=== PATIENT | male | born 1955 | race Caucasian/White ===

== ENCOUNTER → 2019-05-02 | Outpatient (CLI) | payer BC ==
[2019-05-02 12:08] LABS: HCT 43.1 % (39.0-53.0); HGB 14.3 gm/dL (13.0-17.5); MCHC 33.1 g/dL (31.0-37.0); MCV 84.6 fL (80.0-100.0); Mean Platelet Volume 7.9; Platelet Count 266 k/uL (150-450); RDW 13.2 % (11.5-15.5); WBC 9.1 k/uL (3.8-10.6)
[2019-05-02 12:17] LABS: African American GFR (CKD) >90 (>60 ml/min/1.73 sqM); Anion Gap 10 mmol/L; Blood Urea Nitrogen 20 mg/dL (9-20); Carbon Dioxide 25 mmol/L (22-30); Chloride 103 mmol/L (98-107); Glucose 163 mg/dL (74-99); Non-African American GFR(CKD) >90 (>60 ml/min/1.73 sqM); Potassium 4.6 mmol/L (3.5-5.1); Sodium 138 mmol/L (137-145)
== END | disposition home or self-care (01) ==
LOC: LABPRL 11:04
PROVIDERS: ATTEND Internal Medicine Cardiovascular Disease
DX: Z01.812 Encounter for preprocedural laboratory examination (principal); R93.1 Abnormal findings on diagnostic imaging of heart and coronary circulation; E78.2 Mixed hyperlipidemia
CPT/HCPCS: 36415; 80051; 82565; 82947; 84520; 85027

== ENCOUNTER → 2019-05-03 | Day surgery (SDC) | payer BC ==
[2019-05-02 13:44] VITALS: BMI 29.1
[~2019-05-03] MED LIST: ALPRAZolam 0.25 MG TAB PO PRN; ALPRAZolam 0.5 MG TAB PO PRN; ASPIRIN 325 MG TAB PO ONE; ATORVASTATIN 80 MG TAB PO ONE; IOPAMIDOL-370 125ML BTL INJ ONE; LIDOCAINE 1% INJ 10MG/ML (20 ML MDV) ONE; LIDOCAINE 1% INJ 10MG/ML (20 ML MDV) SQ ONE; MIDAZOLAM 2 MG/2 ML VIAL IVP ONE; NITROGLYCERIN SL TABS 0.4 MG TAB SUBLINGUAL PRN; RX INFO: IV CONTRAST WAS GIVEN 1 EACH MISC MISCELLANE PRN; SODIUM CHLORIDE 0.9% 1,000 ML IV SCH; SODIUM CHLORIDE 0.9% 1,000 ML in EMPTY BAG 1 BAG IV ONE; fentaNYL (PF) 50 MCG/ML 2 ML AMP IV ONE; fentaNYL (PF) 50 MCG/ML 2 ML AMP ONE
[2019-05-03 07:08] LABS: Glucose,Whole Blood 142 mg/dL (75-99)
[2019-05-03 07:15] VITALS: RESP 18; TEMP 97.8
--- NOTE | 2019-05-03 08:27 | CC ---
CARDIAC CATHETERIZATION REPORT INDICATION: Abnormal stress echo. PROCEDURE NOTE: After obtaining informed consent, left heart catheterization, coronary angiogram are performed via the right femoral artery using standard Jake catheters. Patient tolerated the procedure well without any obvious immediate complications. A femoral angiogram was performed and Angio-Seal will be deployed for hemostasis. Patient received moderate conscious sedation. Total sedation time was 25 minutes. FINDINGS: 1. HEMODYNAMICS: Left ventricular end-diastolic pressure is 8 to 12 mm. There is no significant gradient across the aortic valve. 2. LEFT VENTRICULOGRAM: Left ventriculogram is not performed #3. 3. ANGIOGRAPHIC DATA: LEFT MAIN CORONARY ARTERY: Left main coronary artery is a normal-sized vessel, shows some mild atherosclerotic plaque in the ostial portion of the left main, divides into left anterior descending coronary artery and circumflex coronary artery. LAD shows a 70% to 80% stenosis in its midportion at the origin of the diagonal branch. The diagonal itself shows a 70% to 80% stenosis. In the very distal LAD as it reaches the apex of the heart, there is a 70% to 80% stenosis noted. The circumflex coronary artery is a nondominant vessel, gives off a large caliber OM branch that has a 70% stenosis. Right coronary artery is a large dominant vessel that shows a 60%-70% stenosis as it bifurcates into PDA and PLV. CONCLUSION: Three-vessel coronary artery disease as described above. The coronaries, especially the LAD and circumflex are heavily calcified. PLAN: I am going to ask a cardiothoracic surgeon to evaluate the patient and give us an opinion regarding surgical revascularization. If they do not believe he is he is an optimal surgical candidate, then patient will undergo catheter-based revascularization. MMODL / IJN: [id number] /
--- NOTE | 2019-05-03 08:33 | LTR ---
DATE OF SERVICE: 05/03/2019 RE: Ashwin Gomez Dear Ivonne: I performed cardiac catheterization on Ashwin Gomez, a detailed catheterization note will be sent for your records. In brief, the cardiac catheterization reveals three-vessel coronary artery disease and I am going to ask a surgeon to evaluate him for possible bypass surgery. If they do not believe he is a surgical candidate, then he will undergo staged multivessel angioplasty. Thank you for giving us the privilege to participate in the care of this pleasant gentleman. Sincerely, MD ABHAY Yanes / JIMENEZ: [id number] /
[2019-05-03 11:59] LABS: Basophils % (A) 0 %; Eosinophils # (A) 0.1 k/uL (0-0.7); Eosinophils % (A) 2 %; HGB 14.1 gm/dL (13.0-17.5); Lymphocytes # (A) 1.8 k/uL (1.0-4.8); Lymphocytes % (A) 26 %; MCH 27.9 pg (25.0-35.0); MCHC 33.5 g/dL (31.0-37.0); MCV 83.3 fL (80.0-100.0); Mean Platelet Volume 7.7; Monocytes # (A) 0.4 k/uL (0-1.0); Monocytes % (A) 6 %; Neutrophils # (A) 4.2 k/uL (1.3-7.7); Neutrophils % (A) 63 %; Platelet Count 239 k/uL (150-450); RBC 5.04 m/uL (4.30-5.90); RDW 13.2 % (11.5-15.5); WBC 6.7 k/uL (3.8-10.6)
[2019-05-03 12:09] LABS: ALT 63 U/L (4-49); AST 70 U/L (17-59); African American GFR (CKD) >90 (>60 ml/min/1.73 sqM); Albumin 4.2 g/dL (3.5-5.0); Alkaline Phosphatase 108 U/L (38-126); Anion Gap 9 mmol/L; Blood Urea Nitrogen 17 mg/dL (9-20); Calcium 9.5 mg/dL (8.4-10.2); Carbon Dioxide 24 mmol/L (22-30); Chloride 103 mmol/L (98-107); Glucose 183 mg/dL (74-99); Magnesium 1.9 mg/dL (1.6-2.3); Non-African American GFR(CKD) >90 (>60 ml/min/1.73 sqM); Potassium 4.5 mmol/L (3.5-5.1); Sodium 136 mmol/L (137-145); Total Bilirubin 1.1 mg/dL (0.2-1.3)
[2019-05-03 12:11] LABS: INR 0.9 (<1.2); Prothrombin Time 9.9 sec (9.0-12.0)
[2019-05-03 12:20] LABS: Partial Thromboplastin Time 21.8 sec (22.0-30.0)
[2019-05-03 13:41] LABS: Color,Urine Yellow
[2019-05-03 13:42] LABS: Appearance,Urine Clear (Clear); Glucose,Urine (UA) Negative (Negative); Protein,Urine Negative (Negative)
[2019-05-03 13:43] LABS: Bilirubin,Urine Negative (Negative); Blood,Urine Negative (Negative); Ketones,Urine Negative (Negative); Leukocyte Esterase,Urine Negative (Negative); Nitrite,Urine Negative (Negative); Urobilinogen,Urine <2.0 mg/dL (<2.0)
[2019-05-03 14:28] VITALS: BP 115/78; PULSE 65
--- NOTE | 2019-05-03 15:01 | XR ---
EXAMINATION TYPE: XR chest 2V DATE OF EXAM: 05/03/2019 COMPARISON: NONE TECHNIQUE: PA and lateral views submitted. HISTORY: Preop FINDINGS: The lungs are clear and there is no pneumothorax, pleural effusion, or focal pneumonia. Azygos fiss ure noted. No overt failure. Biapical pleural thickening. Heart size normal. Hypertrophic changes of the spine. IMPRESSION: 1. No acute process.
--- NOTE | 2019-05-03 15:29 | P.GSCN ---
History of Present Illness Consult date: 05/03/19 Reason for Consult: Multivessel coronary artery disease Requesting physician: Ernesto Martinez History of present illness: This is a 63-year-old gentleman who is followed by Ivonne Kenney nurse practitioner on an outpatient basis. He is a past medical history significant for hypertension, type 2 diabetes mellitus with a recent hemoglobin A1c of 7.0 on 03/12/2019, dyslipidemia, elevated liver enzymes with an AST of 122 and ALT 123 from February 2019, remote history of pneumonia, obesity and a history of dizziness. He has been having some episodes of lightheadedness and dizziness. He denies any complaints of shortness of breath, chest pain, palpitations, syncope or focal neurological deficits. He also states that he has been having some episodes of high blood pressure at home. Subsequently due to the above- mentioned complaints he underwent a carotid duplex study on 04/07/2019 which showed moderate plaque bilaterally without any hemodynamically significant stenosis in either internal carotid artery which was completed at [facility]. For further evaluation he underwent a stress echocardiogram completed at [facility] on 04/28/2019 which demonstrated a positive stress echocardiogram, showing stress-induced ischemia in the basal inferior wall at peak stress suggestive of right coronary artery/circumflex tertiary ischemia. A consult was placed to Dr. Martinez from [facility] and today the patient underwent an elective cardiac catheterization. The cardiac catheterization films demonstrated his left main coronary artery to be normal in size with some mild atherosclerotic plaque in the ostial portion of the left main, a 70-80% stenosis in the midportion of the left anterior setting coronary artery, a 70-80% stenosis to the diagonal coronary artery, a 70-80% stenosis to the distal left anterior descending coronary artery, a 70% stenosis to his obtuse marginal coronary artery, and a 60-70% stenosis to his right coronary artery as it bifurcates into the PDA and PLV coronary arteries. Subsequently, due to the patient's symptoms, stress echocardiogram results and today's cardiac catheterization results a consult was placed to Dr. Susannah Christianson from cardioth oracic surgery to evaluate the patient and give further treatment recommendations in regards to possible myocardial revascularization surgery. Review of Systems A 14 point review of systems was completed and was negative except as mentioned in the HPI. Past Medical History Past Medical History: Diabetes Mellitus, Hyperlipidemia, Hypertension, Pneumonia (Remote history) Additional Past Medical History / Comment(s): GOUT., Recent elevation in his liver enzymes, AST 122, ALT 123 in February 2019. Obesity with a BMI of 29.1 kg/m History of Any Multi-Drug Resistant Organisms: None Reported Past Surgical History: No Surgical Hx Reported Past Anesthesia/Blood Transfusion Reactions: Motion Sickness Additional Past Anesthesia/Blood Transfusion Reaction / Comm: NO ANESTHESIA HX. Past Psychological History: No Psychological Hx Reported Smoking Status: Never smoker Past Alcohol Use History: Rare Past Drug Use History: None Reported - Past Family History Mother Family Medical History: Cancer, Hypertension Additional Family Medical History / Comment(s): SKIN CANCER Brother(s) Family Medical History: Cancer Additional Family Medical History / Comment(s): THYROID CANCER Father Additional Family Medical History / Comment(s): Father at age 82 due to head trauma status post a fall Medications and Allergies Home Medications Medication Instructions Recorded Confirmed Type Aspirin [Adult Low Dose Aspirin EC] 81 mg PO DAILY 05/02/19 05/03/19 History Fish Oil/Dha/Epa [Fish Oil 1,200 1,200 mg PO DAILY 05/03/19 05/03/19 History mg Fish Oil] Meloxicam 15 mg PO DAILY 05/03/19 05/03/19 History Metoprolol Succinate [Toprol XL] 150 mg PO DAILY 05/03/19 05/03/19 History Omega3/Dha/Epa/Fish Oil/Vit D3 1 tab PO DAILY 05/03/19 05/03/19 History [[place]-3 + Vitamin D3 Softgel] amLODIPine [Norvasc] 10 mg PO DAILY 05/03/19 05/03/19 History Allergies Allergy/AdvReac Type Severity Reaction Status Date / Time No Known Allergies Allergy Verified 05/03/19 06:51 Surgical - Exam Vital Signs Temp Pulse Resp BP Pulse Ox 97.8 F 66 18 151/85 98 05/03/19 07:13 05/03/19 07:13 05/03/19 07:13 05/03/19 07:13 05/03/19 07:13 - General well developed, well nourished, no distress, no pain, obese - Eyes PERRL, normal ocular movement - ENT Normocephalic normal pinna, normal nares, normal mucosa, no hearing loss, no congestion - Respiratory Lungs sounds essentially clear throughout. Respirations are symmetrical and nonlabored. - Cardiovascular Regular rhythm and rate. S1 and S2 present, negative for S3, gallop or murmur. No edema present. - Abdomen Abdomen is soft, nontender nondistended. Active bowel sounds present in all 4 abdominal quadrants. No guarding or rigidity. No organomegaly. - Genitourinary Deferred - Rectum Deferred - Integumentary Skin is warm and dry. No clubbing or cyanosis is present. no rash, no growths, no abnormal pigmentation - Neurologic normal coordination, normal sensation - Musculoskeletal normal gait, normal posture - Psychiatric oriented to time, oriented to person, oriented to place, speech is normal, m [place] intact Results - Labs 05/03/19 11:37 05/03/19 11:37 Abnormal Lab Results - Last 24 Hours (Table) 05/03/19 05/03/19 05/03/19 Range/Units 07:04 11:37 11:37 APTT 21.8 L (22.0-30.0) sec Sodium 136 L (137-145) mmol/L Glucose 183 H (74-99) mg/dL POC Glucose (mg/dL) 142 H (75-99) mg/dL AST 70 H (17-59) U/L ALT 63 H (4-49) U/L Diabetes panel 05/03/19 Range/Units 11:37 Sodium 136 L (137-145) mmol/L Potassium 4.5 (3.5-5.1) mmol/L Chloride 103 (98-107) mmol/L Carbon Dioxide 24 (22-30) mmol/L BUN 17 (9-20) mg/dL Creatinine 0.79 (0.66-1.25) mg/dL Glucose 183 H (74-99) mg/dL Calcium 9.5 (8.4-10.2) mg/dL AST 70 H (17-59) U/L ALT 63 H (4-49) U/L Alkaline Phosphatase 108 (38-126) U/L Total Protein 7.0 (6.3-8.2) g/dL Albumin 4.2 (3.5-5.0) g/dL Thyroid panel 05/03/19 Range/Units 11:37 TSH 1.330 (0.465-4.680) mIU/L Calcium panel 05/03/19 Range/Units 11:37 Calcium 9.5 (8.4-10.2) mg/dL Albumin 4.2 (3.5-5.0) g/dL Pituitary panel 05/03/19 Range/Units 11:37 Sodium 136 L (137-145) mmol/L Potassium 4.5 (3.5-5.1) mmol/L Chloride 103 (98-107) mmol/L Carbon Dioxide 24 (22-30) mmol/L BUN 17 (9-20) mg/dL Creatinine 0.79 (0.66-1.25) mg/dL Glucose 183 H (74-99) mg/dL Calcium 9.5 (8.4-10.2) mg/dL TSH 1.330 (0.465-4.680) mIU/L Adrenal panel 05/03/19 Range/Units 11:37 Sodium 136 L (137-145) mmol/L Potassium 4.5 (3.5-5.1) mmol/L Chloride 103 (98-107) mmol/L Carbon Dioxide 24 (22-30) mmol/L BUN 17 (9-20) mg/dL Creatinine 0.79 (0.66-1.25) mg/dL Glucose 183 H (74-99) mg/dL Calcium 9.5 (8.4-10.2) mg/dL Total Bilirubin 1.1 (0.2-1.3) mg/dL AST 70 H (17-59) U/L ALT 63 H (4-49) U/L Alkaline Phosphatase 108 (38-126) U/L Total Protein 7.0 (6.3-8.2) g/dL Albumin 4.2 (3.5-5.0) g/dL - Imaging Comments: Cardiac catheterization films reviewed by Dr. Susannah Christianson. Assessment and Plan Assessment: 1. Multivessel coronary artery disease 2. Hypertension 3. Dyslipidemia 4. Type 2 diabetes mellitus with recent hemoglobin A1c from February 2019 of 7.0 5. History of elevated LFTs 6. Obesity with a BMI of 29.1 kg/m 7. History of dizziness Plan: The patient was seen and examined at his bedside in the extended stay unit. His and a daughter were present at his bedside. His chart and diagnostics were reviewed and discussed with Dr. Susannah Christianson from cardiothoracic surgery in detail. Recommendations are to maximize medical therapy with aspirin, and beta tamara. Preoperative testing has been initiated as well as preoperative teaching. A 5 m walk test will be obtained. He is scheduled to see Dr. Susannah Christianson in the office this 05/06/2019 at 11:45 AM to review his cardiac catheterization films with the patient and to discuss myocardial revascularization surgery. Once his preoperative testing has been completed and collected an STS risk score will be calculated in discussed with the patient. Medical management recommendations per primary care service. Cardiology recommendations per Dr. Martinez. Thank you Dr. Martinez for this consult and we will look forward to working with you in the care of this patient. Time with Patient: Greater than 30
[2019-05-03 18:25] LABS: Hepatitis A Antibody IgM Non-Reactive (Non-Reactive); Hepatitis B Core IgM Non-Reactive (Non-Reactive); Hepatitis B Surface Antigen Non-Reactive (Non-Reactive); Hepatitis C IgG Antibody Non-Reactive (Non-Reactive)
--- NOTE | 2019-05-04 11:07 | P.ARTDOP ---
Arterial Doppler Bilateral radial artery study: Date of study: 03/02/2020 Reason for study: Preop CABG Doppler assessment does show up to 27 mmHg left to right gradient. Digital plethysmography with radial artery compression shows greater than 50 mmHg pressure change bilaterally. Impression: Non-usable bilateral radial arteries based on pressure change criterion.
--- NOTE | 2019-05-04 11:13 | P.VSCSTY ---
Greater Saphenous Vein Mapping This is bilateral lower extremity greater saphenous vein mapping. Date of service: 05/03/2019 Vein quality and ultrasound appearance: We see no endoluminal thrombus or wall changes. Vein size groin right : 4.8 x 4.3 groin left: 7.9 x 10.1 High thigh right: 2.6 x 2.3 high thigh left: 5.4 x 3.7 Mid thigh right: 2.3 x 2.1 mid thigh left: 3.9 x 2.6 Above-knee right: 2.4 x 1.7 above- knee left: 2.3 x 1.2 Below knee right: 2.6 x 1.8 below-knee left: 2.3 x 1.8 Mid calf right: 1.1 x 1.8 mid calf left: 2.2 x 1.9 Ankle right: 2.3 x 2.1 ankle left: 2.0 x 1.3 Impression: Some usable thigh vein bilaterally. The vein from above the knee to the ankle on both sides looks a bit small for use as conduit..
== END ==
LOC: CATHCVL 06:29
PROVIDERS: ATTEND Internal Medicine Cardiovascular Disease
DX: I25.10 Atherosclerotic heart disease of native coronary artery without angina pectoris (principal); I25.84 Coronary atherosclerosis due to calcified coronary lesion; I10 Essential (primary) hypertension; R94.39 Abnormal result of other cardiovascular function study; E78.5 Hyperlipidemia, unspecified; E11.9 Type 2 diabetes mellitus without complications; R74.8 Abnormal levels of other serum enzymes; Z82.3 Family history of stroke; Z82.49 Family history of ischemic heart disease and other diseases of the circulatory system; E66.9 Obesity, unspecified; Z68.29 Body mass index [BMI] 29.0-29.9, adult; Z79.84 Long term (current) use of oral hypoglycemic drugs; Z79.1 Long term (current) use of non-steroidal anti-inflammatories (NSAID); Z79.899 Other long term (current) drug therapy
CPT/HCPCS: 94150; 93458; 80053; 80074; 84443; 83735; 85025; 85610; 85730; 81003; 87070; 71046; 93930; 93970; 93923; C1769 ×2; C1760; C1894; J2250; J2001; J3010; Q9967

== ENCOUNTER → 2019-06-06 | Outpatient (CLI) | payer BC ==
[2019-06-06 14:42] LABS: Basophils # (A) 0.1 k/uL (0-0.2); Basophils % (A) 0 %; Eosinophils # (A) 0.4 k/uL (0-0.7); Eosinophils % (A) 3 %; HCT 30.6 % (39.0-53.0); HGB 9.7 gm/dL (13.0-17.5); Hypochromasia Slight; Lymphocytes # (A) 1.5 k/uL (1.0-4.8); Lymphocytes % (A) 11 %; MCH 27.2 pg (25.0-35.0); MCHC 31.8 g/dL (31.0-37.0); MCV 85.4 fL (80.0-100.0); Mean Platelet Volume 8.4; Monocytes # (A) 0.9 k/uL (0-1.0); Monocytes % (A) 7 %; Neutrophils % (A) 78 %; Platelet Count 673 k/uL (150-450); RBC 3.58 m/uL (4.30-5.90); RDW 14.1 % (11.5-15.5)
== END | disposition home or self-care (01) ==
LOC: LABWHC1 13:39
PROVIDERS: ATTEND Surgery
DX: D64.9 Anemia, unspecified (principal); G72.49 Other inflammatory and immune myopathies, not elsewhere classified
CPT/HCPCS: 36415; 85025; 86140

== ENCOUNTER → 2021-09-11 | Outpatient (CLI) | payer OTHER ==
[2021-09-11 14:53] LABS: HCT 41.4 % (39.6-50.0); HGB 13.1 g/dL (13.0-17.0); MCH 27.6 pg (27.0-32.0); MCHC 31.6 g/dL (32.0-37.0); MCV 87.2 fL (80.0-97.0); Mean Platelet Volume 11.2 fL (9.5-12.2); NRBC Per 100 WBC 0 /100 WBCS (0.0-0.0); Platelet Count 218 X 10*3/uL (140-440); RBC 4.75 X 10*6/uL (4.40-5.60); RDW 13.6 % (11.5-14.5); WBC 7.19 X 10*3/uL (4.50-10.00)
[2021-09-11 15:42] LABS: African American GFR (CKD) 70.6 (60.0-200.0); Anion Gap 13.1 mmol/L (10.00-18.00); BUN/Creat Ratio 16.4 Ratio (12.00-20.00); Blood Urea Nitrogen 20.5 mg/dL (9.0-27.0); Calcium 9.7 mg/dL (8.7-10.3); Carbon Dioxide 22.8 mmol/L (20.0-27.5); Non-African American GFR(CKD) 60.9 (60.0-200.0); Potassium 5.1 mmol/L (3.5-5.5)
== END | disposition home or self-care (01) ==
LOC: LABWHC1 10:12
PROVIDERS: ATTEND Internal Medicine Cardiovascular Disease
DX: R94.2 Abnormal results of pulmonary function studies (principal)
CPT/HCPCS: 36415; 80048; 85027

== ENCOUNTER 2021-09-12 07:19 | Observation (INO) | payer OTHER ==
[~2021-09-12 07:19] MED LIST changes: -ASPIRIN 325 MG TAB PO ONE; +ASPIRIN 325 MG TAB PO STA; -ATORVASTATIN 80 MG TAB PO ONE; +ATORVASTATIN 80 MG TAB PO STA; +HEPARIN SODIUM,PORCINE 10,000 UNIT in SODIUM CHLORIDE 0.9% 1,000 ML IRRIGATION PRN; +HEPARIN SODIUM,PORCINE 2,500 UNIT in SODIUM CHLORIDE 0.9% 250 ML IRRIGATION PRN; -IOPAMIDOL-370 125ML BTL INJ ONE; -LIDOCAINE 1% INJ 10MG/ML (20 ML MDV) ONE; -LIDOCAINE 1% INJ 10MG/ML (20 ML MDV) SQ ONE; -MIDAZOLAM 2 MG/2 ML VIAL IVP ONE; -RX INFO: IV CONTRAST WAS GIVEN 1 EACH MISC MISCELLANE PRN; -SODIUM CHLORIDE 0.9% 1,000 ML IV SCH; -SODIUM CHLORIDE 0.9% 1,000 ML in EMPTY BAG 1 BAG IV ONE; +SODIUM CHLORIDE 0.9% 1,000 ML in EMPTY BAG 1 BAG IV SCH; -fentaNYL (PF) 50 MCG/ML 2 ML AMP IV ONE; -fentaNYL (PF) 50 MCG/ML 2 ML AMP ONE
[2021-09-12 07:47] LABS: Glucose,Whole Blood 129 mg/dL (70-110)
[2021-09-12] MEDS ORDERED: SODIUM CHLORIDE 0.9% 1,000 ML IV ONE ×2 (07:53→12:59)
[2021-09-12] MEDS ORDERED: fentaNYL (PF) 50 MCG/ML 2 ML AMP ONE (08:59)
[2021-09-12] MEDS ORDERED: MIDAZOLAM 2 MG/2 ML VIAL IV ONE (09:28)
[2021-09-12] MEDS ORDERED: fentaNYL (PF) 50 MCG/ML 2 ML AMP IV ONE (09:28)
[2021-09-12] MEDS ORDERED: LIDOCAINE 1% INJ 10MG/ML (30 ML VIAL-PF) SQ ONE (09:29)
[2021-09-12] MEDS ORDERED: IOPAMIDOL-370 125ML BTL INJ ONE ×2 (09:46)
[2021-09-12] MEDS ORDERED: IOPAMIDOL-370 100ML BTL INJ ONE (10:20)
[2021-09-12] MEDS ORDERED: RX INFO: IV CONTRAST WAS GIVEN 1 EACH MISC MISCELLANE PRN (11:20)
[2021-09-12] MEDS ORDERED: ALPRAZolam 0.5 MG TAB PO PRN (11:21)
[2021-09-12] MEDS ORDERED: NITROGLYCERIN SL TABS 0.4 MG TAB SUBLINGUAL PRN (11:21)
[2021-09-12] MEDS ORDERED: ALPRAZolam 0.25 MG TAB PO PRN (11:21)
[2021-09-12] MEDS: SODIUM CHLORIDE 0.9% 1,000 ML IV SCH (11:37)
[2021-09-12 16:11] LABS: Glucose,Whole Blood 86 mg/dL (70-110)
[2021-09-12 16:26] LABS: Basophils % (A) 1 %; Eosinophils # (A) 0.2 k/uL (0-0.7); Eosinophils % (A) 3 %; HCT 38.7 % (39.0-53.0); HGB 12.7 gm/dL (13.0-17.5); Lymphocytes # (A) 1.5 k/uL (1.0-4.8); Lymphocytes % (A) 21 %; MCH 28.9 pg (25.0-35.0); MCHC 32.8 g/dL (31.0-37.0); MCV 88.1 fL (80.0-100.0); Mean Platelet Volume 7.8; Monocytes # (A) 0.5 k/uL (0-1.0); Monocytes % (A) 7 %; Neutrophils # (A) 4.8 k/uL (1.3-7.7); Neutrophils % (A) 68 %; Platelet Count 192 k/uL (150-450); RBC 4.39 m/uL (4.30-5.90); RDW 13.9 % (11.5-15.5); WBC 7.1 k/uL (3.8-10.6)
[2021-09-12 16:38] LABS: Potassium 4.6 mmol/L (3.5-5.1)
[2021-09-12 20:27] LABS: Glucose,Whole Blood 110 mg/dL (70-110)
[2021-09-12] MEDS: METOPROLOL TARTRATE 50 MG TAB PO SCH (21:21)
[2021-09-12 22:59] LABS: Chol/HDL Ratio 3.94 Ratio; LDL Cholesterol,Calculated 34.4 mg/dL (0.0-131.0)
[2021-09-13] MEDS ORDERED: ASPIRIN 325 MG TAB PO ONE (05:00)
[2021-09-13] MEDS ORDERED: ATORVASTATIN 80 MG TAB PO ONE (05:00)
[2021-09-13] MEDS: METOPROLOL TARTRATE 50 MG TAB PO SCH ×2 (06:06→20:57)
[2021-09-13] MEDS: LOSARTAN 25 MG TAB PO SCH (06:06)
[2021-09-13] MEDS: ISOSORBIDE MONONITRATE ER 30 MG TAB.ER.24H PO SCH (06:06)
[2021-09-13 06:08] LABS: Glucose,Whole Blood 123 mg/dL (70-110)
[2021-09-13] MEDS ORDERED: HEPARIN SODIUM,PORCINE 10,000 UNIT in SODIUM CHLORIDE 0.9% 1,000 ML IRRIGATION PRN (07:00)
[2021-09-13] MEDS ORDERED: HEPARIN SODIUM,PORCINE 2,500 UNIT in SODIUM CHLORIDE 0.9% 250 ML IRRIGATION PRN (07:00)
[2021-09-13] MEDS: SODIUM CHLORIDE 0.9% 1,000 ML IV SCH ×4 (07:43→16:32)
[2021-09-13] MEDS: SODIUM CHLORIDE 0.9% 1,000 ML in EMPTY BAG 1 BAG IV SCH ×3 (07:43→20:57)
[2021-09-13] MEDS: ATORVASTATIN 80 MG TAB PO SCH (07:43)
[2021-09-13 08:33] LABS: Basophils # (A) 0.1 k/uL (0-0.2); Basophils % (A) 1 %; Eosinophils # (A) 0.2 k/uL (0-0.7); Eosinophils % (A) 3 %; HCT 37.8 % (39.0-53.0); HGB 12.3 gm/dL (13.0-17.5); Lymphocytes # (A) 1.3 k/uL (1.0-4.8); Lymphocytes % (A) 19 %; MCH 28.3 pg (25.0-35.0); MCHC 32.5 g/dL (31.0-37.0); Mean Platelet Volume 8.4; Monocytes # (A) 0.5 k/uL (0-1.0); Monocytes % (A) 7 %; Neutrophils # (A) 4.6 k/uL (1.3-7.7); Neutrophils % (A) 69 %; Platelet Count 183 k/uL (150-450); RBC 4.34 m/uL (4.30-5.90); RDW 13.8 % (11.5-15.5); WBC 6.6 k/uL (3.8-10.6)
[2021-09-13 08:39] LABS: Calcium 9.2 mg/dL (8.4-10.2); Potassium 4.4 mmol/L (3.5-5.1)
[2021-09-13] MEDS ORDERED: VERAPAMIL 2.5 MG/ML 2 ML AMP ONE (10:40)
[2021-09-13] MEDS ORDERED: HEPARIN SODIUM 1,000 UN/ML (10ML VL) ONE (10:41)
[2021-09-13] MEDS ORDERED: fentaNYL (PF) 50 MCG/ML 2 ML AMP ONE (10:41)
[2021-09-13] MEDS ORDERED: IV FLUID CONTINUATION 350 ML IV ONE (10:53)
[2021-09-13] MEDS ORDERED: fentaNYL (PF) 50 MCG/ML 2 ML AMP IV ONE (11:11)
[2021-09-13] MEDS ORDERED: LIDOCAINE 1% INJ 10MG/ML (30 ML VIAL-PF) SQ ONE (11:12)
[2021-09-13] MEDS ORDERED: VERAPAMIL SYRINGE (5 MG/10 ML) INTRAARTER ONE (11:13)
[2021-09-13] MEDS ORDERED: MIDAZOLAM 2 MG/2 ML VIAL IV ONE (11:14)
[2021-09-13] MEDS ORDERED: CLOPIDOGREL 75 MG TAB ONE ×2 (11:16→11:17)
[2021-09-13] MEDS ORDERED: CLOPIDOGREL 75 MG TAB PO ONE (11:22)
[2021-09-13] MEDS ORDERED: HEPARIN SODIUM 1,000 UN/ML (10ML VL) IV ONE (11:24)
[2021-09-13] MEDS ORDERED: IOPAMIDOL-370 125ML BTL INJ ONE (11:56)
[2021-09-13] MEDS ORDERED: ATROPINE SULFATE 0.1 MG/ML 10ML SYRINGE IV PRN (12:24)
[2021-09-13] MEDS ORDERED: NITROGLYCERIN SL TABS 0.4 MG TAB SUBLINGUAL PRN (12:24)
[2021-09-13] MEDS ORDERED: MAG HYDROX/AL HYDROX/SIMETH 30 ML CUP PO PRN (12:24)
[2021-09-13] MEDS ORDERED: ZOLPIDEM 5 MG TAB PO PRN (12:24)
[2021-09-13] MEDS ORDERED: RX INFO: IV CONTRAST WAS GIVEN 1 EACH MISC MISCELLANE PRN (12:24)
[2021-09-13] MEDS ORDERED: IOPAMIDOL-370 100ML BTL INJ ONE (12:25)
[2021-09-13] MEDS ORDERED: SODIUM CHLORIDE 0.9% 1,000 ML in EMPTY BAG 1 BAG IV SCH (12:30)
[2021-09-13 12:38] LABS: Glucose,Whole Blood 108 mg/dL (70-110)
--- NOTE | 2021-09-13 12:42 | P.CARDCATH ---
Date of Procedure: 09/13/21 Description of Procedure: PERCUTANEOUS TRANSLUMINAL CORONARY ANGIOPLASTY CLINICAL INFORMATION: The patient is a 65-year-old male with a known history of CAD, status post CABG who has been complaining of symptoms of chest discomfort and had an abnormal MPI. Underwent cardiac catheterization yesterday by Dr. Martinez and was found to have an atretic KINGA to the LAD with right subclavian stenosis. In view of his symptoms and his anatomy and the significant disease in the LAD recommendations were made regarding angioplasty and stenting of the LAD. The procedure as well as the risks and the complications were discussed with the patient who was in full understanding and agreement. PROCEDURE: The patient was brought to the [facility] in the fasting and semi- sedated state after receiving fentanyl and Benadryl, using Xylocaine anesthesia in the Seldinger technique a 6-Nigerien sheath was introduced in the left radial artery. A 6 Nigerien EBU 3.75 guiding catheter was introduced into the system. After cannulating the [ left main ], a [0.014 BMW ] waadvaed across the lesion and positioned distally. attempt to advance a 3.0 x 12 mm NC balloon, a 2.0 x 12 mm Treck balloon were unsuccessful, after removing the balloon a guideliner catheter was introduced and a 1.0 x 10 mm Sapphire balloon was advanced and multiple inflation at 10 shanae were done following that the balloon was removed and the 2. 0 by 12 mm Treck balloon was advanced and inflations at 8 shanae were done. Following that a [ 2.5 x 12 NC Treck ]balloon w advanced and inflated at[ 12 ] atmosphe. Following that a [ 2.75 X18 ] guillermina point stent was deployed and postdilated at 16 atmosphere . distal to the first stent at 2.75 x 12 mm sk y point stent was deployed, It was dilated at [ 16 shanae ]. subsequently a 3.0 x 12 mm guillermina point stent was deployed proximally and dilated at 16 shanae. After the last inflation, after appropriate wait, the balloon and the guidewire were withdrawn back into the guiding catheter. Images were obtained and repeated. Those images reveal stable successful stenting. At that point, the guiding catheter, the balloon, and guidewire were removed. a 6-Nigerien SAUD catheter was introduced and images of the MARTINEZ were obtained. The sheath was [ removed ]. Hemostis was obtained with [ deployment of a TR band ]. There re no immediate complications. The patient was returned to the room in stable condition. Of note, the patient received [ 7000] units ofeparin as well as Plavix. His ACT was followed. There was no immediate complications. he had no significant EKG changes or chest discomfort RESULTS: Successful stenting of the [ mid LAD ] with reduction of stenosis from [ 95]% to [ 0 ]%. Patent MARTINEZ to the left circumflex with no obstructive disease RECOMNDATIONS: [ the results were discussed with the patient. I Have recommended dual antiplatelet treatment with aspirin and Plavix for 6-12 months. ]The findings and recommendations were discussed with the patient and the family, they are in full understanding and agreement. Duration of sedation:[ 63 minutes]
[2021-09-13 14:31] VITALS: BMI 29.0
[2021-09-13] MEDS: ASPIRIN 81 MG PO SCH (14:43)
[2021-09-13 16:53] LABS: Glucose,Whole Blood 123 mg/dL (70-110)
[2021-09-13 19:34] LABS: Glucose,Whole Blood 131 mg/dL (70-110)
[2021-09-14] MEDS: SODIUM CHLORIDE 0.9% 1,000 ML IV SCH (03:39)
[2021-09-14 06:14] LABS: Glucose,Whole Blood 123 mg/dL (70-110)
[2021-09-14] MEDS: SODIUM CHLORIDE 0.9% 1,000 ML in EMPTY BAG 1 BAG IV SCH (06:14)
--- NOTE | 2021-09-14 08:23 | P.PN ---
Subjective Progress Note Date: 09/14/21 PROGRESS NOTE The patient is a 65-year-old male, status post CABG who has been complaining of chest discomfort and had an abnormal MPI. He underwent cardiac catheterization was found to have critical stenosis in the LAD, with atretic KINGA to the LAD and right subclavian stenosis, patent MARTINEZ to the OM was occluded SVG to the RCA. He underwent stenting of the LAD yesterday. He is feeling better this morning, he denies any chest discomfort, dizziness or palpitations. He denies any nausea or vomiting. He is in sinus mechanism. Ambulating without difficulties. Medications: Aspirin, Lipitor 80 mg daily, Plavix 75 mg daily, Cozaar 25 mg daily, metoprolol 50 mg twice a day. Imdur 30 mg daily. PHYSICAL EXAMINATION: Blood pressure 145/80 heart rate 70 LUNGS: [Clear to auscultation] HEART: [Regular rate and rhythm, S1, S2. No S3. No systolic murmur] ABDOMEN: [Soft, nontender, no organomegaly] EXTREMETIES: [No edema, left radial pulse intact] LAB: Pending IMPRESSION: 1. Status post stenting of the LAD 2. Known history of severe CAD post CABG 3. Hypertension 4. Hyperlipidemia PLAN: 1. Continue medical therapy 2. Increase physical activity 3. DC home today 4. And follow-up with Dr. Martinez Objective - Vital Signs Vital signs: Vital Signs Temp 98 F 09/13/21 23:17 Pulse 72 09/14/21 03:31 Resp 18 09/14/21 03:31 BP 145/82 09/14/21 03:31 Pulse Ox 97 09/14/21 03:31 FiO2 Intake & Output 09/13/21 09/14/21 09/14/21 18:59 06:59 18:59 Intake Total 268 Balance 268 Weight 91.9 kg Intake: IV 150 Oral 118 Other: Voiding Method Toilet Toilet # Voids 1 2 - Labs CBC & Chem 7: 09/13/21 07:30 09/13/21 07:30 Labs: Abnormal Lab Results - Last 24 Hours (Table) 09/13/21 09/13/21 09/13/21 Range/Units 07:30 07:30 16:52 Hgb 12.3 L (13.0-17.5) gm/dL Hct 37.8 L (39.0-53.0) % Glucose 110 H (74-99) mg/dL POC Glucose (mg/dL) 123 H (70-110) mg/dL 09/13/21 09/14/21 Range/Units 19:32 06:12 Hgb (13.0-17.5) gm/dL Hct (39.0-53.0) % Glucose (74-99) mg/dL POC Glucose (mg/dL) 131 H 123 H (70-110) mg/dL
[2021-09-14 08:24] LABS: Calcium 9.5 mg/dL (8.4-10.2); Potassium 4.4 mmol/L (3.5-5.1)
[2021-09-14] MEDS: METOPROLOL TARTRATE 50 MG TAB PO SCH (08:26)
[2021-09-14] MEDS: ISOSORBIDE MONONITRATE ER 30 MG TAB.ER.24H PO SCH (08:26)
[2021-09-14] MEDS: LOSARTAN 25 MG TAB PO SCH (08:26)
[2021-09-14] MEDS: ATORVASTATIN 80 MG TAB PO SCH (08:26)
[2021-09-14] MEDS: ASPIRIN 81 MG PO SCH (08:26)
[2021-09-14] MEDS ORDERED: CLOPIDOGREL 75 MG TAB PO SCH (09:00)
[2021-09-14 10:30] VITALS: BP 127/77; PULSE 86; RESP 12; TEMP 98.1
--- NOTE | 2021-09-26 19:54 | CC ---
CARDIAC CATHETERIZATION REPORT INDICATION: Exertional shortness of breath with abnormal stress test showing ischemia in LAD distribution. PROCEDURE NOTE: After obtaining informed consent, left heart catheterization, coronary angiogram and selective injection of the bypass grafts were performed via the right femoral artery. The patient tolerated the procedure well without any obvious immediate complications. Subselective images of the KINGA to LAD were obtained by the machine operators. FINDINGS: HEMODYNAMICS: Central aortic pressure is 130/80 mm. ANGIOGRAPHIC DATA: [place] coronary arteries: Left main coronary artery is a normal-sized vessel and is free of stenosis. It divides into left anterior descending coronary artery and circumflex coronary artery. LAD shows a focal 90% stenosis in the mid portion. Circumflex coronary artery: The OM branch shows an 80% to 90% stenosis. Right coronary artery shows a 60% to 70% stenosis in the mid to distal portion. SELECTIVE INJECTION OF THE BYPASS GRAFTS: Venous graft to the PDA appears occluded. KINGA to the LAD is atretic. MARTINEZ to the OM branch appears patent. CONCLUSIONS: [place] 3-vessel coronary artery disease with patent MARTINEZ to the OM, atretic KINGA to the LAD, occluded venous graft to the PDA. There was stenosis involving the right subclavian artery. PLAN: We did not feel that the right subclavian artery stenosis explains the abnormal stress test. We believe the KINGA has become atretic and patient will benefit from angioplasty with stent placement of the LAD. Patient received moderate conscious sedation. Total sedation time was 30 minutes. ABHAY / JIMENEZ: [id number] /
== END 2021-09-14 12:07 | disposition home or self-care (01) ==
LOC: CATHCVL 07:19 → 3SCARD 10:20 → CATHCVL 09-13 15:20 → 3SCARD 09-13 15:28
PROVIDERS: ADMIT Internal Medicine Cardiovascular Disease; ATTEND Internal Medicine Cardiovascular Disease
DX: I25.810 Atherosclerosis of coronary artery bypass graft(s) without angina pectoris (principal); I25.10 Atherosclerotic heart disease of native coronary artery without angina pectoris; R94.39 Abnormal result of other cardiovascular function study; Z95.1 Presence of aortocoronary bypass graft; E11.9 Type 2 diabetes mellitus without complications; I10 Essential (primary) hypertension; E78.2 Mixed hyperlipidemia; Z79.84 Long term (current) use of oral hypoglycemic drugs; Z79.1 Long term (current) use of non-steroidal anti-inflammatories (NSAID); Z79.82 Long term (current) use of aspirin; Z79.899 Other long term (current) drug therapy
CPT/HCPCS: 93459; 80061; 80048 ×3; 85025 ×2; 85730; G0378 ×2; C9600; C1769 ×6; C1760; C1887 ×2; C1894 ×2; C1725 ×4; C1874 ×3; J2250 ×2; J2001 ×2; J3010 ×2; J1644; Q9967 ×4

== ENCOUNTER 2022-10-14 08:53 | Day surgery (SDC) | payer MEDICARE, OTHER ==
[2022-10-09 12:56] VITALS: BMI 29.0
[~2022-10-14 08:53] MED LIST changes: -ATORVASTATIN 80 MG TAB PO STA; -HEPARIN SODIUM,PORCINE 10,000 UNIT in SODIUM CHLORIDE 0.9% 1,000 ML IRRIGATION PRN; -HEPARIN SODIUM,PORCINE 2,500 UNIT in SODIUM CHLORIDE 0.9% 250 ML IRRIGATION PRN
[2022-10-14 09:13] VITALS: TEMP 98.3
[2022-10-14 09:29] LABS: Glucose,Whole Blood 120 mg/dL (70-110)
[2022-10-14] MEDS ORDERED: SODIUM CHLORIDE 0.9% 1,000 ML IV ONE (09:32)
[2022-10-14] MEDS ORDERED: fentaNYL (PF) 50 MCG/ML 2 ML AMP IVP ONE (09:53)
[2022-10-14] MEDS ORDERED: MIDAZOLAM 2 MG/2 ML VIAL IVP ONE (09:53)
[2022-10-14] MEDS ORDERED: LIDOCAINE 1% INJ 10MG/ML (20 ML MDV) SQ ONE (09:59)
[2022-10-14] MEDS ORDERED: IOPAMIDOL-370 100ML BTL INJ ONE (10:26)
[2022-10-14] MEDS ORDERED: RX INFO: IV CONTRAST WAS GIVEN 1 EACH MISC MISCELLANE PRN (10:42)
[2022-10-14] MEDS ORDERED: SODIUM CHLORIDE 0.9% 1,000 ML IV SCH (10:45)
[2022-10-14] MEDS ORDERED: SODIUM CHLORIDE 0.9% 500 ML 500 ML IV ONE (11:12)
--- NOTE | 2022-10-14 11:28 | CC ---
CARDIAC CATHETERIZATION REPORT INDICATIONS: Abnormal stress test. 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 The patient had been explained of risks, benefits, and alternatives. Recent labs show that the creatinine is 1.5, hemoglobin is normal at 13. PROCEDURE NOTE: After obtaining informed consent, left heart catheterization, coronary angiogram, selective injection of the MARTINEZ and the venous graft to the right coronary artery were performed via the right femoral artery using standard Jake catheters. The patient tolerated the procedure well without any obvious immediate complications. A femoral angiogram was performed, and Angio-Seal was deployed for hemostasis. Total sedation time was 28 minutes. FINDINGS: 1. Hemodynamics: Left ventricular end-diastolic pressure is 16 mm. There is no significant gradient across the aortic valve. 2. Left ventriculogram: Left ventriculogram is not performed. 3. Angiographic Data: a.Left main coronary artery is a small-sized vessel and it is free of stenosis. It divides into circumflex coronary artery and left anterior descending coronary artery. b.Circumflex coronary artery gives off a large-caliber OM branch, that shows a competitive flow in it. LAD was previously stented from proximal to mid LAD that did not reveal any significant stenosis. Right coronary artery is a large dominant vessel that shows a focal, significant stenotic lesion involving the PDA, which remains unchanged compared to last cardiac cath. c.Venous graft to the right coronary artery is totally occluded. d. MARTINEZ to circumflex coronary artery appears patent. CONCLUSIONS: 1. [place] 3 vessel coronary artery disease with atretic KINGA to LAD on a previous catheterization, patent MARTINEZ to circumflex coronary artery, occluded venous graft to the right coronary artery. 2. Patent stent within the LAD. 3. Occluded venous graft to the right coronary artery with a focal significant stenosis involving PDA. PLAN: Given the fact that the LAD stent appears patent, lesion in the right coronary artery appears stable, and the coronary anatomy is otherwise unchanged, I will continue with optimal medical therapy, and clear him for the DOT Physical. The patient has a right subclavian stenosis, and I will get another opinion regarding whether we should revascularize the right subclavian artery or not. MMODL / IJN: [id number] /
[2022-10-14 11:50] VITALS: PULSE 60; RESP 16
[2022-10-14 19:19] VITALS: BP 119/66
== END 2022-10-14 15:30 | disposition home or self-care (01) ==
LOC: CATHCVL 08:53
PROVIDERS: ATTEND Internal Medicine Cardiovascular Disease
DX: I25.10 Atherosclerotic heart disease of native coronary artery without angina pectoris (principal); I10 Essential (primary) hypertension; E78.5 Hyperlipidemia, unspecified; E11.9 Type 2 diabetes mellitus without complications; Z79.899 Other long term (current) drug therapy
CPT/HCPCS: 93459; C1760; C1769 ×2; C1894; J2250; J2001; J3010; Q9967